=== PATIENT | male | born 1995 | race Two or more races ===

== ENCOUNTER 2022-07-24 09:54 | Emergency (ER) | payer OTHER ==
[~2022-07-24] VITALS: Ht 167.6 cm; Wt 77.1 kg
[2022-07-24] MEDS ORDERED: TAMS0.4C PO (14:41)
[2022-07-24] MEDS ORDERED: KETO10TA2 PO (14:41)
[2022-07-24] MEDS ORDERED: STONEX PO (14:41)
== END 2022-07-24 15:34 ==
LOC: ER 09:54
DX: N20.9 Urinary calculus, unspecified (principal); N20.0 Calculus of kidney